=== PATIENT | female | born 1985 ===

== ENCOUNTER 2018-05-25 07:04 | Inpatient (IN) | payer OTHER ==
[~2018-05-25] VITALS: Ht 165.1 cm; Wt 73.9 kg
[2018-05-25] MEDS ORDERED: PRENATAL TABLE1 EAC1 PO (08:10)
== END 2018-05-28 10:23 | disposition home or self-care (01) | DRG 775 ==
LOC: LDR 07:04 → OB/GYN 05-26 14:37
PROC: 10E0XZZ Delivery of Products of Conception, External Approach (ICD-10-PCS; principal; 2018-05-25)
PROC: 0HQ9XZZ Repair Perineum Skin, External Approach (ICD-10-PCS; 2018-05-25)
PROC: 4A1HXCZ Monitoring of Products of Conception, Cardiac Rate, External Approach (ICD-10-PCS; 2018-05-25)
PROC: 3E033VJ Introduction of Other Hormone into Peripheral Vein, Percutaneous Approach (ICD-10-PCS; 2018-05-25)
PROC: 4A033R1 Measurement of Arterial Saturation, Peripheral, Percutaneous Approach (ICD-10-PCS; 2018-05-25)
DX: O70.0 First degree perineal laceration during delivery (principal); Z3A.40 40 weeks gestation of pregnancy; Z37.0 Single live birth

== ENCOUNTER 2018-09-28 13:06 | Outpatient (CLI) | payer OTHER ==
[~2018-09-28 13:06] MED LIST: PRENATAL TABLE1 EAC1 PO
== END 2018-09-28 13:23 | disposition home or self-care (01) ==
LOC: SONOGRAMA 13:06
DX: N60.11 Diffuse cystic mastopathy of right breast (principal); N60.12 Diffuse cystic mastopathy of left breast

== ENCOUNTER 2021-07-23 05:15 | Day surgery (SDC) | payer OTHER | END 2021-07-23 17:30 | disposition home or self-care (01) | LOC: CIR.AMB 05:15 → SURH 07:32 → CIR.AMB 07:46 → EDSTATUS 07:46 → CIR.AMB 14:30 | PROVIDERS: ATTEND Obstetrics & Gynecology | DX: O02.1 Missed abortion (principal); Z20.822 Contact with and (suspected) exposure to COVID-19 ==

== ENCOUNTER 2022-07-28 11:46 | Inpatient (IN) | payer OTHER ==
[~2022-07-28] VITALS: Ht 165.1 cm; Wt 78.5 kg
[2022-07-28] MEDS ORDERED: CHILDREN'S ASPI81 MG PO (12:07)
[2022-07-28] MEDS ORDERED: PRENATAL TABLE1 EAC1 PO (12:07)
== END 2022-07-30 12:01 | disposition home or self-care (01) | DRG 807 ==
LOC: OB/GYN 11:46 → LDR 11:46 → OB/GYN 16:01
PROVIDERS: ADMIT Obstetrics & Gynecology; ATTEND Obstetrics & Gynecology
PROC: 10E0XZZ Delivery of Products of Conception, External Approach (ICD-10-PCS; principal; 2022-07-28)
PROC: 0HQ9XZZ Repair Perineum Skin, External Approach (ICD-10-PCS; 2022-07-28)
PROC: 0W8NXZZ Division of Female Perineum, External Approach (ICD-10-PCS; 2022-07-28)
PROC: 4A1HXCZ Monitoring of Products of Conception, Cardiac Rate, External Approach (ICD-10-PCS; 2022-07-28)
DX: O70.0 First degree perineal laceration during delivery (principal); Z37.0 Single live birth; Z3A.38 38 weeks gestation of pregnancy; Z20.822 Contact with and (suspected) exposure to COVID-19

== ENCOUNTER 2022-08-01 22:44 | Inpatient (IN) | payer OTHER ==
[~2022-08-01] VITALS: Ht 165.1 cm; Wt 68.0 kg
[~2022-08-01 22:44] MED LIST changes: +CHILDREN'S ASPI81 MG PO
[2022-08-03] MEDS ORDERED: LABETALOL HCL100 MG PO (09:08)
== END 2022-08-03 11:27 | disposition home or self-care (01) | DRG 776 ==
LOC: LDR 22:44 → OB/GYN 08-02 10:38
PROVIDERS: ADMIT Obstetrics & Gynecology; ATTEND Obstetrics & Gynecology
DX: O16.5 Unspecified maternal hypertension, complicating the puerperium (principal); Z20.822 Contact with and (suspected) exposure to COVID-19